=== PATIENT | female | born 1935 | race Caucasian/White ===

== ENCOUNTER 2022-01-26 22:59 | Inpatient (IN) | payer MEDICARE, OTHER ==
[~2022-01-26] VITALS: Ht 167.6 cm; Wt 61.2 kg
[2022-01-26] MEDS ORDERED: ACETAMINOPHEN ES 500 MG TABLET PO ONE (23:15)
[2022-01-26] MEDS ORDERED: IV NORMAL SALINE 500 ML BAG IV ONE (23:15)
[2022-01-26] MEDS ORDERED: ASPIRIN 81 MG TAB.CHEW PO ONE (23:15)
[2022-01-26] MEDS ORDERED: HYDROCODONE/APAP 5-325MG TABLET PO ONE (23:15)
[2022-01-26] MEDS ORDERED: HYDROCODONE/APAP 5-325MG TABLET ONE (23:21)
[2022-01-26] MEDS ORDERED: ACETAMINOPHEN ES 500 MG TABLET ONE (23:21)
[2022-01-26] MEDS ORDERED: ASPIRIN 81 MG TAB.CHEW ONE (23:21)
[2022-01-26] MEDS ORDERED: ASPI81TA31 PO (23:26)
[2022-01-26] MEDS ORDERED: SPIR25TA PO (23:26)
[2022-01-26] MEDS ORDERED: LORA10TA7 PO (23:26)
[2022-01-26] MEDS ORDERED: SACU1TAB PO (23:26)
[2022-01-26] MEDS ORDERED: PANT40TA49 PO (23:26)
[2022-01-26] MEDS ORDERED: CARV3.12 PO (23:26)
[2022-01-26] MEDS ORDERED: ESTR42.53 VG (23:26)
[2022-01-26] MEDS ORDERED: GABA100C PO (23:26)
[2022-01-26] MEDS ORDERED: ATOR40TA PO (23:26)
[2022-01-26] MEDS ORDERED: MELA3TAB41 PO (23:26)
[2022-01-26] MEDS ORDERED: MEMA10TA PO (23:26)
[2022-01-26 23:27] LABS: HEMATOCRIT 34.9 % (31.2-41.9); MEAN CORPUSCULAR HEMOGLOBIN 29.2 uug (24.7-32.8); MEAN CORPUSCULAR VOLUME 89.5 fL (75.5-95.3); PLATELET COUNT (AUTO) 275 K/uL (179-408)
[2022-01-26 23:41] LABS: CARBON DIOXIDE 28 mmol/L (21-32); CHLORIDE 100 mmol/L (98-107); CREATININE 0.8 mg/dL (0.6-1.3); GLUCOSE 162 mg/dL (74-106); POTASSIUM 3.7 mmol/L (3.5-5.1); UREA NITROGEN, BLOOD 24 mg/dL (7-18)
[2022-01-26 23:54] LABS: ALANINE AMINOTRANSFERASE 13 U/L (14-59); ALKALINE PHOSPHATASE 136 U/L (50-136); ASPARTATE AMINOTRANSFERASE 5 U/L (15-37); BILIRUBIN,DIRECT 0.1 mg/dL (0.0-0.2); BILIRUBIN,TOTAL 0.3 mg/dL (0.2-1.0); TOTAL PROTEIN, SERUM 6.7 g/dL (6.4-8.2)
--- NOTE | 2022-01-26 23:57 | NUR ---
Pt back to ER from CT.
[2022-01-27] MEDS ORDERED: MEMANTINE HCL 5 MG TABLET PO SCH (00:30)
[2022-01-27] MEDS ORDERED: OLANZAPINE 5 MG TABLET PO ONE (00:30)
[2022-01-27] MEDS ORDERED: OLANZAPINE 5 MG TABLET ONE (00:30)
--- NOTE | 2022-01-27 00:50 | NUR ---
Dr. Higgins on panel call with Jaylin Bello NP.
[2022-01-27] MEDS ORDERED: CEFTRIAXONE /D5W 50ML IVPB **ER PYXIS IV ONE (00:57)
[2022-01-27] MEDS ORDERED: CEFTRIAXONE 1 G in IV DEXTROSE 5% 50 ML IV ONE (01:00)
[2022-01-27] MEDS ORDERED: ONDANSETRON 4 MG/2 ML VIAL IV PRN (01:00)
[2022-01-27] MEDS ORDERED: MAGNESIUM HYDROXIDE 30 ML LIQUID UDC PO PRN (01:00)
--- NOTE | 2022-01-27 01:55 | NUR ---
Called household chores for room. they will call back when available.
--- NOTE | 2022-01-27 02:29 | NUR ---
Daughter of pt "Faith"
[2022-01-27] MEDS ORDERED: LORAZEPAM 1 MG TABLET ONE (02:56)
[2022-01-27] MEDS ORDERED: LORAZEPAM 1 MG TABLET PO PRN (03:00)
[2022-01-27 03:27] LABS: *BILIRUBIN,URIN NEGATIVE (NEGATIVE); *BLOOD, URINE NEGATIVE (NEGATIVE); *CLARITY,URINE CLEAR (CLEAR); *KETONES,URINE NEGATIVE (NEGATIVE); *UROBILINOGEN,URINE 0.2 E.U./dl (NORMAL); LEUKOCYTE ESTERASE ,URINE TRACE (NEGATIVE); NITRITE, URINE NEGATIVE (NEGATIVE); UGLUCOSE NEGATIVE (NEGATIVE)
[2022-01-27 03:40] LABS: *COLOR,URINE STRAW (YELLOW)
[2022-01-27 03:41] LABS: BACTERIA,URINE NONE SEEN /HPF (NONE SEEN); RBC,URINE NONE SEEN /HPF (0-3); SQUAMOUS EPITHELIAL CELL,UR FEW /HPF (NONE SEEN); WBC,URINE 0-3 /HPF (0-3)
--- NOTE | 2022-01-27 04:05 | NUR ---
Report given to Mandi AQUINO.
--- NOTE | 2022-01-27 04:34 | NUR ---
ADMITTED FROM ER AN 86 YO FEMALE WITH ADM DX OF CP AWAKE ALERT BUT CONFUSED X3. DENIES CHEST PAIN OR SOB. TRYING TO GET OUT OF BED REALITY ORIENTATION GIVEN. SR ON MONITOR.
[2022-01-27 04:40] VITALS: BP 122/62
[2022-01-27 05:41] LABS: CREATININE 0.7 mg/dL (0.6-1.3); MAGNESIUM 1.8 mg/dL (1.8-2.4); MEAN CORPUSCULAR HEMOGLOBIN 29.1 uug (24.7-32.8); MEAN CORPUSCULAR VOLUME 88.8 fL (75.5-95.3); PHOSPHOROUS 3.6 mg/dL (2.5-4.9); PLATELET COUNT (AUTO) 249 K/uL (179-408); POTASSIUM 3.5 mmol/L (3.5-5.1)
[2022-01-27] MEDS: ASPIRIN 81 MG TAB.CHEW PO SCH (09:32)
[2022-01-27] MEDS ORDERED: ASPIRIN 81 MG TAB.CHEW PO SCH (09:45)
[2022-01-27 12:00] VITALS: BP 117/71
[2022-01-27] MEDS: GABAPENTIN 100 MG CAPSULE PO SCH ×2 (14:01→17:35)
[2022-01-27 16:39] VITALS: BP 143/82
[2022-01-27] MEDS: SACUBITRIL PO SCH (17:32)
[2022-01-27] MEDS: VALSARTAN PO SCH (17:32)
[2022-01-27] MEDS: MEMANTINE HCL 10 MG TABLET PO SCH (17:35)
[2022-01-27] MEDS: CARVEDILOL 3.125 MG TABLET PO SCH (18:53)
[2022-01-27 20:36] VITALS: BP 139/81
[2022-01-27] MEDS ORDERED: ATORVASTATIN 40 MG TABLET PO SCH (21:00)
[2022-01-27] MEDS ORDERED: ATORVASTATIN 10 MG TABLET PO SCH (21:00)
[2022-01-27] MEDS ORDERED: MELATONIN 3 MG TABLET PO SCH (21:00)
[2022-01-27] MEDS: ACETAMINOPHEN 325 MG TABLET PO PRN (22:23)
--- NOTE | 2022-01-28 00:05 | NUR ---
patient removed IV and removed rn cardiac, patient not agitated however confused, patient reoriented, rn cardiac reapplied
[2022-01-28 00:39] VITALS: BP 116/44
[2022-01-28] MEDS: CEFTRIAXONE 1 G in IV DEXTROSE 5% 50 ML IV SCH ×2 (01:00→03:30)
[2022-01-28 04:00] VITALS: BP 107/52
[2022-01-28 06:34] LABS: MEAN CORPUSCULAR HEMOGLOBIN 29.1 uug (24.7-32.8); MEAN CORPUSCULAR VOLUME 88.1 fL (75.5-95.3); PLATELET COUNT (AUTO) 255 K/uL (179-408)
[2022-01-28 06:49] LABS: CREATININE 0.8 mg/dL (0.6-1.3); POTASSIUM 3.9 mmol/L (3.5-5.1)
[2022-01-28] MEDS ORDERED: PANTOPRAZOLE SODIUM 40 MG TABLET.DR PO SCH (07:00)
[2022-01-28] MEDS ORDERED: LORATADINE 10 MG TABLET PO SCH (09:00)
[2022-01-28] MEDS ORDERED: ESTRADIOL 0.01% VG SCH (09:00)
[2022-01-28] MEDS ORDERED: SPIRONOLACTONE 25 MG TABLET PO SCH (09:00)
[2022-01-28] MEDS: ASPIRIN 81 MG TAB.CHEW PO SCH (09:01)
[2022-01-28] MEDS: MEMANTINE HCL 10 MG TABLET PO SCH ×2 (09:01→16:48)
[2022-01-28] MEDS: GABAPENTIN 100 MG CAPSULE PO SCH ×3 (09:01→16:48)
[2022-01-28] MEDS: SACUBITRIL PO SCH ×2 (09:02→16:47)
[2022-01-28] MEDS: CARVEDILOL 3.125 MG TABLET PO SCH ×2 (09:02→17:04)
[2022-01-28] MEDS: VALSARTAN PO SCH ×2 (09:02→16:47)
[2022-01-28] MEDS ORDERED: CEPH500C2 PO (09:14)
--- NOTE | 2022-01-28 09:15 | NUR ---
PATIENT SEEN AND EXAMINED BY DR KHARI BAE WITH ORDER TO DISCHARGE PATIENT TODAY WILL AWAKE FOR THE SPOOL WORKER CLIENT SERVICES ASSISTANT TO LET ME KNOW WHERE PATIENT WILL BE GOING.
[2022-01-28] MEDS: ACETAMINOPHEN 325 MG TABLET PO PRN (09:25)
--- NOTE | 2022-01-28 09:25 | NUR ---
PATIENT AWAKE ALERT AND ORIENTED STATED HAS A HEADACHE REQUESTED FOR TYLENOL GIVEN ORDERED PATIENT STATED THAT SHE NEEDED TO SLEEP STATED DID NOT SLEEP GOOD LAST NOC REMOVING HER TELE MONITORING WILL NOT LEAVE IT IN PLACE ON ROOM AIR WITH NO SHORTNESS OF BREATH AT THIS TIME MADE COMFORTABLE WILL CONTINUE TO OBSERVE.
--- NOTE | 2022-01-28 10:45 | NUR ---
CALL RECEIVED FROM PATIENTS DAUGHTER STATED THAT PATIENT WAS COMPLAINING OF CHEST PAIN WENT INTO THE ROOM PATIENT IS ASLEEP WITH HER EYES CLOSED SO I WOKE HER UP AND ASKED HER IF ANY HURT AND SHE STATED NO EXCEPT FOR HER HEAD WHICH SHE SAID WAS BETTER BLOOD PRESSURE WAS 101/67 AND HR 70 O2 SAT 95 PERCENT WILL CONTINUE TO OBSERVE.
[2022-01-28 11:48] VITALS: BP 101/60
--- NOTE | 2022-01-28 14:43 | NUR ---
PER DAMIAN SEISMIC PROSPECTING SUPERVISOR STATED THAT [facility] IS ABLE TO TAKE PATIENT TODAY WILL ARRANGE FOR AMBULANCE TO PICK HER UP ABOUT 1700 ALS STATED WILL CALL PATIENTS DAUGHTER AASHISH TO INFORM HER.
--- NOTE | 2022-01-28 15:33 | NUR ---
CALLED THE [facility] SPOKE WITH DINA BARR REPORT GIVEN TO HER FOR CONTINUING CARE .
[2022-01-28 16:00] VITALS: BP 97/47
[2022-01-28 17:04] VITALS: BP 100/60
--- NOTE | 2022-01-28 17:40 | NUR ---
PATIENT DISCHARGED PICKED UP BY [facility] IN SATISFACTORY CONDITION WITH DISCHARGE INSTRUCTIONS AND ALL HER PERSONAL BELONGING TO THE [facility] FOR [facility]
== END 2022-01-28 17:40 | DRG 303 ==
LOC: ER 23:31 → MEDSURG3 01-27 02:22 → TELE3 01-27 04:22
PROVIDERS: ADMIT Nurse Practitioner Acute Care; ATTEND Nurse Practitioner Acute Care
DX: I25.10 Atherosclerotic heart disease of native coronary artery without angina pectoris (principal); F05 Delirium due to known physiological condition; I50.22 Chronic systolic (congestive) heart failure; I13.0 Hypertensive heart and chronic kidney disease with heart failure and stage 1 through stage 4 chronic kidney disease, or unspecified chronic kidney disease; N39.0 Urinary tract infection, site not specified; E44.0 Moderate protein-calorie malnutrition; I25.5 Ischemic cardiomyopathy; R07.9 Chest pain, unspecified; G30.9 Alzheimer's disease, unspecified; F02.80 Dementia in other diseases classified elsewhere, unspecified severity, without behavioral disturbance, psychotic disturbance, mood disturbance, and anxiety; R79.89 Other specified abnormal findings of blood chemistry; I44.7 Left bundle-branch block, unspecified; Z87.891 Personal history of nicotine dependence; N18.9 Chronic kidney disease, unspecified; K21.9 Gastro-esophageal reflux disease without esophagitis; J44.9 Chronic obstructive pulmonary disease, unspecified; G62.9 Polyneuropathy, unspecified; E78.5 Hyperlipidemia, unspecified; Z79.82 Long term (current) use of aspirin; Z87.440 Personal history of urinary (tract) infections; B96.89 Other specified bacterial agents as the cause of diseases classified elsewhere; R91.8 Other nonspecific abnormal finding of lung field
CPT/HCPCS: 36415; 70450; 71045; 83735; 84100; 84484; 85025; 85730; 87086; 93005; 93307; 97161; A4663; A9150; G0378; J0696; J7040